=== PATIENT | female | born 1990 | race Caucasian/White ===

== ENCOUNTER 2018-03-17 16:21 | Inpatient (IN) | payer BC ==
--- NOTE | 2018-03-17 17:01 | HP ---
General Information - Reason for Visit Cervical ripening/induction due to gestational hypertension - General Information Maternal Age: 28 Grav: 2 Para: 0 SAB: 0 IEA: 1 Estimated Due Date: 03/25/18 Determined By: LMP Gestational Age in Weeks/Days: 38w 6d Maternal Blood Type and Rh: B Positive - Results this Serology/RPR Result: Non-Reactive Rubella Result: Immune HBsAg Result: Negative HIV Result: Negative GBS Culture Result: Negative Past Medical History Past Medical History Comment: ADHD-stopped medication with Back pain/sciatica Abnormal moles--sees Dr. Olson regularly for evaluation Past Surgical History Comment: R shoulder arthroscopy (09/2005) for labrum repair, rotator cuff reconstruction Pertinent Family History: See Records - Antepartal Records Antepartal Records: Reviewed, Complicated by: - gestational hypertension Review of Systems Constitutional: Comfortable CV Complaint: No Respiratory: Shortness of Breath: No Gastrointestinal: No Nausea/Vomiting Genitourinary: No Dysuria, No Leaking Fluid Musculoskeletal: Back Pain, Pressure Neurological: No Headache Movement: Normal Exam Allergies/Adverse Reactions: Allergies No Known Allergies Allergy (Verified 03/17/18 16:58) 147/91 Lab Values - Entire Visit: pending - Measurements Height: 5 ft 5.5 in Weight: 226 lb Body Mass Index (BMI): 37.0 Pre- Weight: 170 lb - Exam Breast: - - soft, no masses Extremities: Edema Heart: Normal Rhythm/Heart Sounds HEENT: No Significant Findings Lungs: Clear Bilaterally Reflexes: DTR 2+ Thyroid: No Thyromegaly - Ultrasound/Biophysical Profile Ultrasound Status: Not Done Targeted Exam Findings See L&D Outpatient Visit Provider Note for Findings: N/A Estimated Weight: 8.5 lbs Cervical Exam: 1cm Effacement: Thick Station: -3 Presenting Part: Vertex Membrane Status: Intact EFM Findings - External Monitor Findings Baseline Heart Rate: 120 External Monitor Findings: Accelerations Present, No Pattern of Variable or Late Decelerations, Variability Moderate, Baseline Stable External Monitor Findings Comment: category 1 Contractions: Regular, Mild - not felt by patient Contraction Frequency: every 3-4 minutes Assessment/Plan - Assessment IUP at 38w 6 d, gestational hypertension - Obstetrical Risk Factors Obstetrical Risk Factors: Gestational Hypertension - Plan Plan: Cervical Ripening Plan Comment: will draw labs Cervidil - Date/Time of Admission Date of Admission: 03/17/18 Time of Admission: 17:00
[2018-03-17] MEDS ORDERED: Dinoprostone* 10 MG VAG.SUPP VAGINAL ONE (17:10)
--- NOTE | 2018-03-17 17:31 | PN ---
Progress Note - Progress Note Date of Service: 03/17/18 Note: Cervidil inserted at 1725. Will monitor per protocol. Reevaluate in am if no labor
[2018-03-17 17:39] LABS: ABS Basophils 0 10^3/ul (0-0.2); ABS Eosinophils 0 10^3/ul (0-0.6); ABS Lymphocytes 1.8 10^3/ul (1.0-4.8); ABS Monocytes 0.6 10^3/ul (0-0.8); ABS Neutrophils 9.3 10^3/ul (1.5-7.7); ABS Nucleated RBC 0 10^3/ul; EGFR Non-African American 84.2 (>60); Eosinophil % 0.2 % (0-6); Hematocrit 36 % (35-47); Hemoglobin 11.9 g/dl (12.0-16.0); Lymphocyte % 15.2 % (25-47); Mean Corpuscular HGB Conc 33 g/dl (31-36); Mean Corpuscular Hemoglobin 30 pg (27-31); Mean Corpuscular Volume 91 fL (80-97); Mean Platelet Volume 9.7 um3 (7.4-10.4); Nucleated Red Blood Cells % 0.1; Platelet Count 211 10^3/ul (150-450); Red Blood Count 3.98 10^6/ul (4.00-5.40); Red Cell Distribution Width 14 % (10.5-15); Uric Acid 8.2 mg/dL (2.3-6.6); White Blood Count 11.8 10^3/ul (3.5-10.8)
[2018-03-17 18:17] LABS: Urine Appearance Cloudy; Urine Blood 2+ (Negative); Urine Color Straw; Urine Ketones Negative (Negative); Urine Protein Negative (Negative); Urine Red Blood Cell 1+(3-5/hpf) (Absent); Urine Specific Gravity 1.003 (1.010-1.030); Urine Urobilinogen Negative (Negative); Urine White Blood Cell Trace(0-5/hpf) (Absent)
--- NOTE | 2018-03-17 20:55 | PN ---
Progress Note - Progress Note Date of Service: 03/17/18 Note: Mild irreg cramping, not in labor. Discussed options with pt earlier, stated that she desired to go home after Cervidil removed if not in labor. Will discharge, to return to hospital tomorrow am for further ripening or induction
[2018-03-18] MEDS ORDERED: Oxytocin in LR* 20 UNITS/1,000 ML BAG IVPB ONE (10:24)
[2018-03-18] MEDS ORDERED: Oxytocin in LR* 20 UNITS/1,000 ML BAG IVPB SCH (11:00)
[2018-03-18] MEDS ORDERED: Misoprostol TAB* 100 MCG VAGINAL ONE ×2 (15:56→21:18)
--- NOTE | 2018-03-19 08:30 | PN ---
Progress Note - Progress Note Date of Service: 03/19/18 Note: S: Pt reports some rest overnight but feeling stronger, more consistent UCs. Denies MORGAN. No visual changes. No RUQ pain. Describes active FM. No LOF or VB. O: BPs overnight: 142/95, 131/77, 163/99, 143/93, 137/89 Pulse 80bpm Temp 98 FHT: 125bpm. Moderate variability. +Accels. No decels. UCs mild q 4 min VE: 1cm/60%/vtx -2 A: IUP at 39-1/7 with gestational hypertension vs. pre-eclampsia No evidence of metabolic acidemia P: Pt agrees to repeat labs this AM (CBC, P33, Uric acid, urine protein). Given that she's had a cervidil followed by trial of IV pitocin followed by oral cytotec plan repeat trial of IV pitocin. Pt and FOB agree.
[2018-03-19] MEDS ORDERED: Oxytocin in LR* 20 UNITS/1,000 ML BAG IVPB SCH (09:00)
[2018-03-19 09:01] LABS: ABS Basophils 0 10^3/ul (0-0.2); ABS Eosinophils 0.1 10^3/ul (0-0.6); ABS Lymphocytes 1.9 10^3/ul (1.0-4.8); ABS Monocytes 0.6 10^3/ul (0-0.8); ABS Neutrophils 8.6 10^3/ul (1.5-7.7); ABS Nucleated RBC 0 10^3/ul; Hematocrit 39 % (35-47); Hemoglobin 13.1 g/dl (12.0-16.0); Lymphocyte % 17.3 % (25-47); Mean Corpuscular HGB Conc 34 g/dl (31-36); Mean Corpuscular Hemoglobin 30 pg (27-31); Mean Corpuscular Volume 90 fL (80-97); Mean Platelet Volume 9.6 um3 (7.4-10.4); Nucleated Red Blood Cells % 0.1; Platelet Count 213 10^3/ul (150-450); Red Blood Count 4.34 10^6/ul (4.00-5.40); Red Cell Distribution Width 15 % (10.5-15); White Blood Count 11.2 10^3/ul (3.5-10.8)
[2018-03-19 09:13] LABS: EGFR Non-African American 71.8 (>60); Uric Acid 10.1 mg/dL (2.3-6.6)
[2018-03-19 12:29] LABS: Urine Appearance Clear; Urine Blood Negative (Negative); Urine Color Straw; Urine Ketones Negative (Negative); Urine Protein Negative (Negative); Urine Specific Gravity 1.003 (1.010-1.030); Urine Urobilinogen Negative (Negative)
--- NOTE | 2018-03-19 14:26 | PN ---
Progress Note - Progress Note Date of Service: 03/19/18 Note: S: Labs stable indicating gestational hypertension. Pt feeling upset and frustrated by lack of progress. Feeling like UCs are stronger and more regular but still able to talk through them. Would like to pause so she can take a shower. O: BP 144/100 HR 89 T 98.2 FHT: 125bpm. Moderate variability. +Accels. No decels UCs q 2-4, mild VE: unchanged (1cm/60%/vtx -2). Membranes swept A: IUP at 39-1/7 with gestational hypertension No evidence of metabolic acidemia P: Ok to take a break so pt can shower. Counseled for trial Robles bulb + pitocin. Pt and FOB agree. Will ring when out of shower.
--- NOTE | 2018-03-19 15:04 | PN ---
Progress Note - Progress Note Date of Service: 03/19/18 Note: Quick Note Pt feeling much better after shower. Robles balloon placed without difficulty and filled with 40mL sterile saline. Plan to restart low dose pitocin. Will continue to monitor
--- NOTE | 2018-03-19 16:24 | PN ---
Progress Note - Progress Note Date of Service: 03/19/18 Note: S: Pt s/p SROM to clear fluid at 1550. Robles bulb removed. Pt reports UCs increasing in intensity O: BP 144/100 FHT: 140bpm. Moderate variability. +Accels. No decels UCs q 3 min mild-mod VE: deferred in presence of SROM A: IUP at 39-1/7 here for IOL due to gestational hypertension No evidence of metabolic acidemia Spontaneous rupture of membranes, clear P: Continue IV pitocin. Continue to monitor.
[2018-03-19] MEDS ORDERED: OBEPIDURAL* 250 ML EPIDURAL ONE (18:33)
--- NOTE | 2018-03-19 18:36 | PN ---
Progress Note - Progress Note Date of Service: 03/19/18 Note: S: Pt requests labor epidural O: BP 141/93 HR 98 T 98.4 FHT: 145bpm. Moderate variability. +Accels. No decels UCs q 2-4 IV pit at 2mu/min VE: 4cm/80%/vtx -2, clear fluid A: IUP at 39-1/7 with gestational hypertension, IOL in early active labor No evidence of metabolic acidemia P: Anesthesia paged for consult
[2018-03-19] MEDS ORDERED: Sodium Citrate/Citric Acid* 15 ML UDC PO PRN ×2 (19:43→19:45)
[2018-03-19] MEDS ORDERED: Phenylephrine IV* 40 MCG/ML 10 ML SYRINGE IV PUSH PRN (19:43)
[2018-03-19] MEDS ORDERED: Famotidine TAB* 20 MG PO PRN (19:43)
[2018-03-19] MEDS ORDERED: OBEPIDURAL* 250 ML EPIDURAL SCH ×2 (20:00)
--- NOTE | 2018-03-19 21:15 | PN ---
Progress Note - Progress Note Date of Service: 03/19/18 Note: S: Pt comfortable s/p CEI placement O: BP 140/91 HR 109 T 99.2 FHT: 140bpm. Moderate variability. +Accels. No decels UCs q 2-4 IV pit at 8mu/min VE: 4-5/80%/vtx -2 A: IUP at 39-1/7 IOL gestational hypertension No evidence of metabolic acidemia P: Enc rest. Continue IV pitocin
--- NOTE | 2018-03-20 01:58 | PN ---
Progress Note - Progress Note Date of Service: 03/20/18 Note: S: Pt reports increased pressure in low back for the past few hours. Breathes with UCs but coping well. Using bolus button PRN O: BP 150/97, 141/91 HR 97 T 98.3 FHT: 135-145bpm. Moderate variability. +Accels. No decels UCs q 2-4. 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 Pt and FOB agree.
[2018-03-20] MEDS ORDERED: Oxytocin in LR* 20 UNITS/1,000 ML BAG IVPB SCH ×2 (03:00→11:00)
--- NOTE | 2018-03-20 06:26 | PN ---
Progress Note - Progress Note Date of Service: 03/20/18 Note: S: Pt with adequate MVUs for the past 2 hours. Resting comfortably in bed O: BP 148/91 HR 105 T 99.7 FHT 140bpm. Moderate variability. +Accels. Rare early type decels UCs MVUs adequate on 27 mu/min IV Pitocin VE: 8/100%/vtx -1 A: IUP at 39-2/7 weeks with gestational hypertension, active labor No evidence of metabolic acidemia P: Continue IV pitocin. Report to Candelaria Faust CNM who will assume care at 0800
[2018-03-20] MEDS ORDERED: OBEPIDURAL* 250 ML EPIDURAL ONE (08:03)
[2018-03-20] MEDS ORDERED: Dibucaine 1% 28.35 GM TUBE PR PRN (10:39)
[2018-03-20] MEDS ORDERED: Witch Hazel PAD* JAR TOPICAL PRN (10:39)
[2018-03-20] MEDS ORDERED: Glycerin ADULT SUPP PR PRN (10:39)
--- NOTE | 2018-03-20 10:47 | PROCNOTE ---
[facility] OB: Delivery Note - Nursery Level of Nursery: Regular/Bedside - Perineum Perineal Injury: Periurethral Laceration Perineal Repair: By Delivering Practioner - Events Delivery Events of Note: Pitocin During Labor, IUPC Use - Additional Delivery Notes Additional Delivery Notes: SVB LMC, OA over perineal abrasions and periuretheral laceration. Infant pink with stimulation. Terminal mec. Placenta Ana. FF with massage. IV with pitocin runnning. EBL 200cc. with Apgars 8/9, 39w 2 d, weight 9#1 oz. Periurethral laceration repaired with 1 stitch 4-0 ccg under 1% lidocaine local. Abrasions repaired with 3 stitches 4-0ccg under 1% lidocaine
[2018-03-20] MEDS: Ibuprofen TAB* 600 MG PO PRN ×2 (10:54→17:59)
[2018-03-20] MEDS: Docusate CAP* 100 MG PO SCH ×2 (14:06→20:32)
[2018-03-20] MEDS: Acetaminophen TAB* 325 MG PO PRN (20:32)
[2018-03-21] MEDS: Ibuprofen TAB* 600 MG PO PRN ×4 (01:38→21:41)
[2018-03-21 06:59] LABS: Hematocrit 29 % (35-47); Mean Corpuscular HGB Conc 34 g/dl (31-36); Mean Corpuscular Hemoglobin 31 pg (27-31); Mean Corpuscular Volume 90 fL (80-97); Mean Platelet Volume 9.4 um3 (7.4-10.4); Platelet Count 155 10^3/ul (150-450); Red Blood Count 3.24 10^6/ul (4.00-5.40); Red Cell Distribution Width 14 % (10.5-15); White Blood Count 17.6 10^3/ul (3.5-10.8)
[2018-03-21] MEDS: Ferrous Gluconate TAB* 324 MG TAB PO SCH ×2 (09:22→21:42)
[2018-03-21] MEDS: Docusate CAP* 100 MG PO SCH ×3 (09:22→21:41)
[2018-03-22] MEDS: Acetaminophen TAB* 325 MG PO PRN ×2 (02:20→08:33)
[2018-03-22] MEDS: Ibuprofen TAB* 600 MG PO PRN (05:41)
[2018-03-22 08:31] VITALS: BP 132/79
[2018-03-22] MEDS: Ferrous Gluconate TAB* 324 MG TAB PO SCH (08:33)
[2018-03-22] MEDS: Docusate CAP* 100 MG PO SCH (08:33)
== END 2018-03-22 11:11 | disposition home or self-care (01) | DRG 560 ==
LOC: MCHOBOUT 16:21 → MCHOB 16:59
PROVIDERS: ADMIT Midwife; ATTEND Midwife
PROC: 3E0P7VZ Introduction of Hormone into Female Reproductive, Via Natural or Artificial Opening (ICD-10-PCS; principal; 2018-03-20)
PROC: 10E0XZZ Delivery of Products of Conception, External Approach (ICD-10-PCS; 2018-03-20)
PROC: 4A1HXCZ Monitoring of Products of Conception, Cardiac Rate, External Approach (ICD-10-PCS; 2018-03-20)
PROC: 0UQMXZZ Repair Vulva, External Approach (ICD-10-PCS; 2018-03-20)
PROC: 4A1H7CZ Monitoring of Products of Conception, Cardiac Rate, Via Natural or Artificial Opening (ICD-10-PCS; 2018-03-20)
PROC: 10H07YZ Insertion of Other Device into Products of Conception, Via Natural or Artificial Opening (ICD-10-PCS; 2018-03-20)
PROC: 0U7C7ZZ Dilation of Cervix, Via Natural or Artificial Opening (ICD-10-PCS; 2018-03-20)
PROC: 0HQ9XZZ Repair Perineum Skin, External Approach (ICD-10-PCS; 2018-03-20)
DX: O13.4 Gestational [pregnancy-induced] hypertension without significant proteinuria, complicating childbirth (principal); Z3A.39 39 weeks gestation of pregnancy; Z37.0 Single live birth; O71.82 Other specified trauma to perineum and vulva; O77.0 Labor and delivery complicated by meconium in amniotic fluid
CPT/HCPCS: 36415; 80053; 81003; 81015; 84550; 85025; 85027; 86850; 86900; 86901; 87086; A9270-GY; S0191

== ENCOUNTER 2019-09-29 08:22 | Emergency (ER) | payer OTHER ==
[2019-09-29 08:33] VITALS: BP 137/75
--- NOTE | 2019-09-29 09:07 | UC ---
Respiratory Complaint HPI - HPI Summary HPI Summary: 1 WEEK OF URI SYMPTOMS INCLUDING COUGH, CONGESTION AND HEADACHE. STATES HER SYMPTOMS ARE IMPROVING BUT HER COUGH IS PERSISTENT. SHE IS SLEEPING THROUGH THE NIGHT WITHOUT DIFFICULTY BUT HAS COUGHING FITS DURING THE DAY. NO FEVER. NO NAUSEA/VOMITING. IS NO LONGER BREAST-FEEDING. - History of Current Complaint Chief Complaint: UCRespiratory Stated Complaint: COUGH Time Seen by Provider: 09/29/19 08:30 Hx Obtained From: Patient Onset/Duration: Gradual Onset, Lasting Days, Still Present Timing: Constant Severity Initially: Moderate Severity Currently: Mild Pain Intensity: 0 Pain Scale Used: 0-10 Numeric Character: Cough: Nonproductive Aggravating Factors: Nothing Alleviating Factors: Nothing Associated Signs And Symptoms: Positive: URI, Nasal Congestion. Negative: Dyspnea, Fever, Chills, Wheezing - Allergies/Home Medications Allergies/Adverse Reactions: Allergies Allergy/AdvReac Type Severity Reaction Status Date / Time No Known Allergies Allergy Verified 09/29/19 08:33 PMH/Surg Hx/FS Hx/Imm Hx Previously Healthy: Yes - Surgical History Surgical History: Yes Surgery Procedure, Year, and Place: right shoulder repair - Family History Known Family History: Positive: Non-Contributory - Social History Alcohol Use: None Substance Use Type: None Smoking Status (MU): Former Smoker - Immunization History Most Recent Influenza Vaccination: 08/17 Most Recent Pneumonia Vaccination: unknown Review of Systems All Other Systems Reviewed And Are Negative: Yes Constitutional: Positive: Negative ENT: Positive: Nasal Discharge Respiratory: Positive: Cough Cardiovascular: Positive: Negative Gastrointestinal: Positive: Negative Neurological: Positive: Headache Physical Exam Triage Information Reviewed: Yes Appearance: Well-Appearing, No Pain Distress, Well-Nourished Vital Signs: Initial Vital Signs Temp 97.2 F 09/29/19 08:29 Pulse 70 09/29/19 08:29 Resp 16 09/29/19 08:29 BP 137/75 09/29/19 08:29 Pulse Ox 99 09/29/19 08:29 Vital Signs Reviewed: Yes Eyes: Positive: Conjunctiva Clear ENT: Positive: Hearing grossly normal, Pharynx normal, TMs normal Neck: Positive: Supple, Nontender, No Lymphadenopathy Respiratory Exam: Normal Cardiovascular Exam: Normal Abdomen Description: Positive: Soft Musculoskeletal: Positive: No Edema Neurological: Positive: Alert Psychological: Positive: Age Appropriate Behavior Skin: Negative: Rashes Respiratory Course/Dx - Course Course Of Treatment: PATIENT SYMPTOMS ARE IMPROVING. WILL GIVE SHORT BURST OF PREDNISONE AND ALBUTEROL INHALER TO HELP WITH RESIDUAL COUGH. NO INDICATION FOR ANTIBIOTICS. FOLLOW-UP IF NOT IMPROVING EXPECTED. - Differential Dx/Diagnosis Provider Diagnosis: Post-viral cough syndrome Discharge ED - Sign-Out/Discharge Documenting (check all that apply): Patient Departure All imaging exams completed and their final reports reviewed: No Studies - Discharge Plan Condition: Stable Disposition: HOME Prescriptions: Albuterol HFA INHALER* [Ventolin HFA Inhaler*] 2 puff INH Q4H PRN #1 mdi PRN Reason: Shortness Of Breath predniSONE 20 mg TAB [Deltasone 20 MG TAB*] 40 mg PO DAILY #10 tab Patient Education Materials: Acute Cough (ED) Referrals: oRdney Kumar MD [Primary Care Provider] - If Needed Additional Instructions: YOUR SYMPTOMS ARE LIKELY VIRALLY MEDIATED AND SHOULD CONTINUE TO IMPROVE ON THEIR OWN WITH TIME. NO INDICATION FOR ANTIBIOTICS AT PRESENT. REST, HYDRATE, OTC MEDS NEEDED. WILL TREAT WITH PREDNISONE AND ALBUTEROL TO HELP WITH AIRWAY INFLAMMATION. SEEK FOLLOW-UP IF YOU ARE NOT IMPROVING OVER THE NEXT 1-2 WEEKS. - Billing Disposition and Condition Condition: STABLE Disposition: Home
== END 2019-09-29 09:09 | disposition home or self-care (01) ==
LOC: UCEAST 08:22
DX: R05 Cough (principal); R51 Headache; R09.81 Nasal congestion; Z87.891 Personal history of nicotine dependence
CPT/HCPCS: 99212; G0463

== ENCOUNTER 2020-10-08 10:47 | Inpatient (IN) ==
[2020-10-08] MEDS ORDERED: Lactated Ringers 1000 ml BAG 1,000 ML IV ONE (11:41)
[2020-10-08 12:13] LABS: ABS Lymphocytes 1.4 10^3/ul (1.0-4.8); ABS Monocytes 0.6 10^3/ul (0-0.8); ABS Neutrophils 8.1 10^3/ul (1.5-7.7); Eosinophil % 0.5 %; Hematocrit 38 % (35-47); Hemoglobin 13.2 g/dL (12.0-16.0); Lymphocyte % 13.5 %; Mean Corpuscular HGB Conc 35 g/dL (31-36); Mean Corpuscular Hemoglobin 32 pg (27-31); Mean Corpuscular Volume 91 fL (80-97); Platelet Count 169 10^3/uL (150-450); Red Blood Count 4.12 10^6 /uL (3.70-4.87); Red Cell Distribution Width 14 % (10-15); White Blood Count 10.1 10^3/uL (3.5-10.8)
[2020-10-08 12:28] LABS: Albumin 3.6 g/dL (3.2-5.2); Albumin/Globulin Ratio 1.4 (1-3); BUN/Creatinine Ratio 17.4 (8-20); Calcium 9.9 mg/dL (8.6-10.3); EGFR African American 120.9 (>60); EGFR Non-African American 99.9 (>60); Globulin 2.6 g/dL (2-4); Potassium 3.8 mmol/L (3.5-5.0); Total Bilirubin 0.4 mg/dL (0.2-1.0); Total Protein 6.2 g/dL (6.4-8.9); Uric Acid 6.7 mg/dL (2.3-6.6)
[2020-10-08] MEDS ORDERED: OBEPIDURAL 0 ML EPIDURAL ONE (13:00)
[2020-10-08] MEDS ORDERED: Oxytocin in LR 20 UNITS/1,000 ML BAG IVPB ONE (13:35)
[2020-10-08 13:41] LABS: Urine Benzodiazepine Screen None Detected (None Detect); Urine Cannabinoids Screen None Detected (None Detect); Urine Opiates Screen None Detected (None Detect)
[2020-10-08] MEDS ORDERED: Dibucaine 1% OINT 28.35 GM TUBE PR PRN (13:56)
[2020-10-08] MEDS ORDERED: Witch Hazel PAD JAR TOPICAL PRN (13:56)
[2020-10-08] MEDS ORDERED: Lactated Ringers 1000 ml BAG 1,000 ML IV SCH (14:00)
[2020-10-08] MEDS ORDERED: Oxytocin in LR 20 UNITS/1,000 ML BAG IVPB SCH (14:00)
[2020-10-08] MEDS ORDERED: Lidocaine 1% MPF 5 ML VIAL ONE (15:50)
[2020-10-09 09:12] LABS: ABS Eosinophils 0.1 10^3/ul (0-0.6); ABS Lymphocytes 1.3 10^3/ul (1.0-4.8); ABS Monocytes 0.4 10^3/ul (0-0.8); Eosinophil % 0.8 %; Hematocrit 35 % (35-47); Hemoglobin 12.2 g/dL (12.0-16.0); Lymphocyte % 13.6 %; Mean Corpuscular HGB Conc 35 g/dL (31-36); Mean Corpuscular Hemoglobin 32 pg (27-31); Mean Corpuscular Volume 92 fL (80-97); Mean Platelet Volume 8.8 fL (7.4-10.4); Platelet Count 158 10^3/uL (150-450); Red Cell Distribution Width 14 % (10-15); White Blood Count 9.9 10^3/uL (3.5-10.8)
[2020-10-09 12:12] VITALS: BP 129/75
== END 2020-10-09 14:48 | disposition home or self-care (01) | DRG 807 ==
LOC: MCHOBOUT 10:47 → MCHOB 12:01
PROVIDERS: ADMIT Midwife; ATTEND Midwife

== ENCOUNTER 2023-01-07 03:04 | Inpatient (IN) ==
[2023-01-07] MEDS ORDERED: Nalbuphine 10 MG/ML 1 ML VIAL IV PRN (03:55)
[2023-01-07] MEDS ORDERED: Lactated Ringers 1000 ml BAG 1,000 ML IV ONE ×2 (03:55→07:51)
[2023-01-07] MEDS ORDERED: Buffered Lidocaine 1% SYRIN 1 ml INTRADERM ONE (03:55)
[2023-01-07] MEDS ORDERED: Promethazine INJ(RESTRICTED) 25 MG/ML 1 ml VIAL IV PRN (03:55)
[2023-01-07] MEDS ORDERED: Lactated Ringers 1000 ml BAG 1,000 ML IV SCH ×3 (04:00→09:00)
[2023-01-07 04:15] LABS: Urine Appearance Cloudy; Urine Bilirubin Negative (Negative); Urine Blood 2+ (Negative); Urine Color Straw; Urine Glucose Negative (Negative); Urine Ketones Negative (Negative); Urine Nitrite Negative (Negative); Urine Protein Negative (Negative); Urine Specific Gravity 1.005 (1.002-1.030); Urine Urobilinogen Negative (Negative)
[2023-01-07] MEDS ORDERED: Oxytocin in LR 20,000 MILLI.UNIT/1,000 ML BAG IV SCH (04:15)
[2023-01-07 04:39] LABS: Urine Benzodiazepine Screen None Detected (None Detect); Urine Cannabinoids Screen None Detected (None Detect); Urine Opiates Screen None Detected (None Detect)
[2023-01-07 04:53] LABS: Urine Bacteria Absent (Absent); Urine Red Blood Cell 1+(3-5/hpf) (Absent); Urine Squamous Epithelial Cell Present (Absent); Urine White Blood Cell 3+(>20/hpf) (Absent)
[2023-01-07 05:23] LABS: ABS Lymphocytes 2.2 10^3/uL (1.0-4.8); ABS Neutrophils 9.5 10^3/uL (1.5-7.6); ABS Nucleated RBC 0.01 10^3/ul; Eosinophil % 0.3 %; Hematocrit 38.3 % (35-45); Hemoglobin 13.1 g/dL (11.5-14.3); Mean Corpuscular Hemoglobin 30.5 pg (27-33); Mean Corpuscular Hgb Conc 34.2 g/dL (31-36); Mean Corpuscular Volume 89.3 fL (80-97); Mean Platelet Volume 8.9 fL (7.5-11.2); Nucleated Red Blood Cells % 0.1 /100 WBC (0.0-0.4); Platelet Count 178 10^3/uL (150-450); Red Cell Distribution Width 14.7 % (12-17); White Blood Count 12.8 10^3/uL (3.8-11.8)
[2023-01-07 06:03] LABS: Calcium 10.6 mg/dL (8.6-10.3); Creatinine, Serum 0.7 mg/dL (0.51-0.95); Potassium 3.7 mmol/L (3.5-5.0); eGFR CKD-EPI 117.8 (>60)
[2023-01-07] MEDS ORDERED: Lidocaine 1% w EPI 1:200,000 SDV 30 ML VIAL ONE (07:28)
[2023-01-07] MEDS ORDERED: OBEPIDURAL (200 ML) 0 ML EPIDURAL ONE (07:28)
[2023-01-07] MEDS ORDERED: fentaNYL 100 mcg/2 ml 50 MCG/ML VIAL ONE (07:43)
[2023-01-07] MEDS ORDERED: Phenylephrine 40 mcg/mL 10mL (400mcg) SYRINGE IV PUSH PRN ×2 (07:51)
[2023-01-07] MEDS ORDERED: Sodium Citrate/Citric Acid LIQ 15 ML UDC PO PRN (07:51)
[2023-01-07] MEDS ORDERED: OBEPIDURAL (200 ML) 200 ML EPIDURAL SCH (08:00)
[2023-01-07] MEDS: Oxytocin in LR 20,000 MILLI.UNIT/1,000 ML BAG IV SCH ×2 (08:40→09:57)
[2023-01-07] MEDS ORDERED: Witch Hazel PAD JAR TOPICAL PRN (09:00)
[2023-01-07] MEDS: Dibucaine 1% OINT 28.35 GM TUBE PR PRN ×2 (09:39→19:59)
[2023-01-08 06:49] LABS: ABS Eosinophils 0.1 10^3/uL (0.0-0.5); ABS Monocytes 0.8 10^3/uL (0.0-0.9); ABS Neutrophils 9.5 10^3/uL (1.5-7.6); Eosinophil % 0.6 %; Hemoglobin 11.1 g/dL (11.5-14.3); Lymphocyte % 15.9 %; Mean Corpuscular Hemoglobin 31.1 pg (27-33); Mean Corpuscular Hgb Conc 34.7 g/dL (31-36); Mean Corpuscular Volume 89.9 fL (80-97); Mean Platelet Volume 8.9 fL (7.5-11.2); Platelet Count 156 10^3/uL (150-450); Red Blood Count 3.56 10^6/uL (3.63-4.92); Red Cell Distribution Width 14.6 % (12-17); White Blood Count 12.4 10^3/uL (3.8-11.8)
[2023-01-08 08:42] VITALS: BP 120/72
== END 2023-01-08 12:18 | disposition home or self-care (01) | DRG 807 ==
LOC: MCHOBOUT 03:04 → MCHOB 03:34
PROVIDERS: ADMIT Advanced Practice Midwife; ATTEND Midwife